=== PATIENT | female | born 1960 | race Caucasian/White ===

== ENCOUNTER 2016-05-19 16:05 | Emergency (ER) | payer OTHER ==
[~2016-05-19] VITALS: Ht 172.7 cm; Wt 67.1 kg
[2016-05-19 16:22] VITALS: BP 128/81
== END 2016-05-19 17:11 | disposition home or self-care (01) ==
LOC: ER 16:08
DX: B02.9 Zoster without complications (principal); G89.29 Other chronic pain; I10 Essential (primary) hypertension
CPT/HCPCS: 99283; A4606; Z7610